=== PATIENT | female | born 1990 | race Two or more races ===

== ENCOUNTER 2017-03-09 17:19 | Emergency (ER) | payer OTHER ==
[~2017-03-09] VITALS: Ht 157.5 cm; Wt 65.8 kg
[2017-03-09] MEDS ORDERED: NEOMYCIN-BACITRACIN-POLYM UNITDOSE PKG TOP OINT TOP ONE (19:45)
[2017-03-09 20:04] VITALS: BP 122/64
== END 2017-03-09 20:08 | disposition home or self-care (01) ==
LOC: ER 17:20
DX: S61.211A Laceration without foreign body of left index finger without damage to nail, initial encounter (principal); S61.213A Laceration without foreign body of left middle finger without damage to nail, initial encounter; W26.0XXA Contact with knife, initial encounter; Y93.89 Activity, other specified; Y99.8 Other external cause status; Y92.89 Other specified places as the place of occurrence of the external cause
CPT/HCPCS: 12002